=== PATIENT | female | born 1975 | race Two or more races ===

== ENCOUNTER 2016-11-13 17:17 | Emergency (ER) | payer SELFPAY ==
[~2016-11-13 17:17] MED LIST: PREN1TAB58 PO
[2016-11-13 17:31] VITALS: BP 118/70
[2016-11-13 18:02] LABS: BASO % 0 % (0-3); EOS % 3 % (0-3); HEMOGLOBIN 14.6 g/dL (12.0-15.5); LYMPH # 1.6 x10^3/uL (1.0-4.8); LYMPH % 24 % (24-48); MEAN CORPUSCULAR HEMOGLOBIN 30 pg (25-35); MEAN CORPUSCULAR HGB CONC 35 g/dL (31-37); MEAN CORPUSCULAR VOLUME 87 fL (79-100); MONO % 10 % (0-9); NEUT % 63 % (31-73); PLATELET COUNT 226 x10^3/uL (140-400); RED CELL DISTRIBUTION WIDTH 12.3 % (11.5-14.5); WHITE BLOOD COUNT 6.6 x10^3/uL (4.0-11.0)
[2016-11-13 18:12] LABS: CALCIUM 8.6 mg/dL (8.5-10.1); CREATININE 0.6 mg/dL (0.6-1.0); GFR 109.6; POTASSIUM 3.1 mmol/L (3.5-5.1)
[2016-11-13 18:18] LABS: ALBUMIN 3.2 g/dL (3.4-5.0); DIRECT BILIRUBIN 0.1 mg/dL (0.0-0.2); TOTAL BILIRUBIN 0.2 mg/dL (0.2-1.0); TOTAL PROTEIN 7.2 g/dL (6.4-8.2)
[2016-11-13] MEDS ORDERED: PREN1TAB58 PO (18:18)
--- NOTE | 2016-11-13 18:19 | PHYS DOC ---
Past Medical History Past Medical History: No Pertinent History Past Surgical History: No Surgical History Alcohol Use: None Drug Use: None Adult General Chief Complaint Chief Complaint: VAGINAL BLEEDING HPI HPI 41-year-old female presenting to the emergency department today with vaginal bleeding and abdominal pain. She is reportedly 11 weeks . Her pain is suprapubic nonradiating mild to moderate and without alleviating factors. She reports saturating approximately 2 pads over the last hour. She denies nausea vomiting chest pain or shortness of breath. Review of systems is negative for fevers chills. She denies dysuria or polyuria. All other review of systems is negative unless otherwise noted in history of present illness. Review of Systems Review of Systems SEE ABOVE. Current Medications Current Medications Current Medications Medications (Trade) Dose Ordered Sig/Micki Start Time Stop Time Status Last Admin Dose Admin Acetaminophen/ Hydrocodone Bitart (Lortab 5/325) 2 tab 1X ONCE 11/13/16 20:00 11/13/16 20:01 DC 11/13/16 19:55 2 TAB Allergies Allergies Allergies Coded Allergies Type Severity Reaction Last Updated Verified No Known Drug Allergies 10/31/15 No Physical Exam Physical Exam Constitutional: Well developed, well nourished, no acute distress, non-toxic appearance. HENT: Normocephalic, atraumatic, bilateral external ears normal, oropharynx moist, no oral exudates, nose normal. [] Eyes: PERRLA, EOMI, conjunctiva normal, no discharge. [] Neck: Normal range of motion, no tenderness, supple, no stridor. Cardiovascular:Heart rate regular rhythm, no murmur [] Lungs & Thorax: Bilateral breath sounds clear to auscultation Abdomen: Bowel sounds normal, soft, no tenderness, no masses, no pulsatile masses. Skin: Warm, dry, no erythema, no rash. [] Back: No tenderness, no CVA tenderness. Extremities: No tenderness, no cyanosis, no clubbing, ROM intact, no edema. [] Neurologic: Alert and oriented X 3, normal motor function, normal sensory function, no focal deficits noted. Psychologic: Affect normal, judgement normal, mood normal. [] Current Patient Data Vital Signs Vital Signs Date Time Temp Pulse Resp B/P Pulse Ox O2 Delivery O2 Flow Rate FiO2 11/13/16 19:55 12 11/13/16 17:31 97.9 94 118/70 99 Room Air 97.9 Lab Values Laboratory Tests Test 11/13/16 17:30 11/13/16 20:02 White Blood Count 6.6x10^3/uL (4.0-11.0) Red Blood Count 4.80x10^6/uL (3.50-5.40) Hemoglobin 14.6g/dL (12.0-15.5) Hematocrit 42.0% (36.0-47.0) Mean Corpuscular Volume 87fL (79-100) Mean Corpuscular Hemoglobin 30pg (25-35) Mean Corpuscular Hemoglobin Concent 35g/dL (31-37) Red Cell Distribution Width 12.3% (11.5-14.5) Platelet Count 226x10^3/uL (140-400) Neutrophils (%) (Auto) 63% (31-73) Lymphocytes (%) (Auto) 24% (24-48) Monocytes (%) (Auto) 10% (0-9) H Eosinophils (%) (Auto) 3% (0-3) Basophils (%) (Auto) 0% (0-3) Neutrophils # (Auto) 4.1x10^3uL (1.8-7.7) Lymphocytes # (Auto) 1.6x10^3/uL (1.0-4.8) Monocytes # (Auto) 0.6x10^3/uL (0.0-1.1) Eosinophils # (Auto) 0.2x10^3/uL (0.0-0.7) Basophils # (Auto) 0.0x10^3/uL (0.0-0.2) Maternal Serum HCG Beta Subunit 6053mIU/mL (0-6) H Sodium Level 137mmol/L (136-145) Potassium Level 3.1mmol/L (3.5-5.1) L Chloride Level 101mmol/L (98-107) Carbon Dioxide Level 26mmol/L (21-32) Anion Gap 10 (6-14) Blood Urea Nitrogen 5mg/dL (7-20) L Creatinine 0.6mg/dL (0.6-1.0) Estimated GFR (Cockcroft-Gault) 109.6 Glucose Level 105mg/dL (70-99) H Calcium Level 8.6mg/dL (8.5-10.1) Total Bilirubin 0.2mg/dL (0.2-1.0) Direct Bilirubin 0.1mg/dL (0.0-0.2) Aspartate Amino Transferase (AST) 107U/L (15-37) H Alanine Aminotransferase (ALT) 119U/L (14-59) H Alkaline Phosphatase 124U/L (46-116) H Total Protein 7.2g/dL (6.4-8.2) Albumin 3.2g/dL (3.4-5.0) L Lipase 187U/L (73-393) Urine Collection Type U cath Urine Color Yellow Urine Clarity Clear Urine pH 6.5 Urine Specific [place] 1.010 Urine Protein Negativemg/dL (NEG-TRACE) Urine Glucose (UA) Negativemg/dL (NEG) Urine Ketones (Stick) 40mg/dL (NEG) Urine Blood Negative (NEG) Urine Nitrite Negative (NEG) Urine Bilirubin Negative (NEG) Urine Urobilinogen Dipstick 0.2mg/dL (0.2 mg/dL) Urine Leukocyte Esterase Negative (NEG) Urine RBC 0/HPF (0-2) Urine WBC 0/HPF (0-4) Urine Squamous Epithelial Cells Few/LPF Urine Transitional Epithelial Cells Occ/LPF Urine Bacteria 0/HPF (0-FEW) Laboratory Tests 11/13/16 17:30 Laboratory Tests 11/13/16 17:30 EKG EKG [] Radiology/Procedures Radiology/Procedures [] Course & Med Decision Making Course & Med Decision Making Pertinent Labs and Imaging studies reviewed. (See chart for details) [] 41-year-old female presenting to the emergency department today with vaginal bleeding and . Vital signs afebrile normal heart rate. Pertinent physical exam showed a nontender soft abdomen. Blood work obtained. Patient is O + by electronic medical review. Ultrasound ordered. Intrauterine identified. CBC unremarkable. Ultrasound showed no evidence of intrauterine . No free fluid in the pelvis. Patient's potassium was low. She was discharged with oral potassium replacement. I discussed the case with Dr. Brannon who stated she would be able to follow the patient up in clinic over the next day or 2. 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 [id number] discharge instructions and return precautions given. Patient and comfortable with plan. Dragon Disclaimer Dragon Disclaimer This electronic medical record was generated, in whole or in part, using a voice recognition dictation system. Departure Departure Impression: Primary Impression: Vaginal bleeding in Disposition: 01 HOME, SELF-CARE Condition: STABLE Referrals: UNKNOWN PCP NAME (PCP) GURU LOERA Jr, MD Patient Instructions: Vaginal Bleeding During , [id number], Vaginal Bleeding During , First Trimester Additional Instructions: Thank you for allowing us to participate in your care today. Followup with dr. loera in 3-4 days. If you do not have a primary care provider you can ask for a list of our primary care providers. Return to the emergency department you have any new or concerning findings. This should be evaluated by the primary care physician and any necessary consulting services for continued management within a few days after discharge. Return to emergency room if you have any new or concerning symptoms including but not limited to fever, chills, nausea, vomiting, intractable pain, any new rashes, chest pain, shortness of air, uncontrolled bleeding, difficulty breathing, and/or vision loss. You may have been prescribed medication that can change in your level of thinking and ability to operate machinery. These medications include hydrocodone and Ativan. Also, Benadryl has been known to do this as well. Be sure to check with your pharmacist and ask if the medications you've prescribed can affect your level of consciousness. I recommend not operating heavy machinery or driving while on medication such as these. Scripts Morphine Sulfate 15 Mg Tablet1 Tab PO PRN Q6-8HRS PRN SEVERE PAIN #8 TAB Prov:EDILIA MOELLER MD 11/13/16 Potassium Chloride 10 Meq Tablet.er10 Meq PO DAILY #7 TAB Prov:EDILIA MOELLER MD 11/13/16 Vits W-Ca,Fe,Fa(<1MG) ( Vitamins)1 Each Tablet1 Tab PO DAILY # 15 TAB Ref 0 Prov:EDILIA MOELLER MD 11/13/16 Problem Qualifiers Primary Impression: Vaginal bleeding in Trimester: first trimester Qualified Code: O46.91 - Antepartum hemorrhage, unspecified, first trimester EDILIA MOELLER MD Nov 13, 2016 18:18
--- NOTE | 2016-11-13 19:31 | RAD ---
PROCEDURE Obstetric ultrasound less than 14 weeks HISTORY female with pelvic pain and vaginal bleeding TECHNIQUE Grayscale and duplex Doppler sonography with a transabdominal and transvaginal transducer COMPARISON No prior available at time of exam FINDINGS No quantitative HCG was submitted for the exam. Transabdominal imaging demonstrates uterus measuring 13.4 x 6.0 x 5.3 centimeters. There is globular marked enlargement of the cervix which has a short axis diameter of 7.6 centimeters. No intrauterine transabdominal. Ovaries not visualized transabdominal. Transvaginal imaging demonstrates anteverted uterus. No intrauterine evident. There is abnormal enlargement of the cervix with heterogeneous echogenicity, no hypervascularization of the cervix evident. Right ovary measures 2.0 x 2.4 x 1.1 centimeters. Left ovary measures 3.8 x 1.9 x 1.6 centimeters. Intact bilateral ovarian blood flow. IMPRESSION No intrauterine evident. There is abnormal enlargement and echogenicity of the cervix with no regions of abnormal hypervascularity present, this could represent a large volume of endocervical hematoma after recent spontaneous although enlargement of the cervix due to a mass cannot be excluded. Electronically signed by: Lyle Churchill MD (Nov 13, 2016 19:30:21)
[2016-11-13] MEDS ORDERED: POTA10TA10 PO (19:56)
[2016-11-13] MEDS ORDERED: HYDROCODONE/APAP 5/325MG TABLET. PO ONE (20:00)
[2016-11-13] MEDS ORDERED: MORP15TA PO (20:24)
[2016-11-13 20:59] LABS: BILIRUBIN,URINE NEGATIVE (NEG); GLUCOSE,URINE NEGATIVE (NEG); NITRITE,URINE NEGATIVE (NEG); PH,URINE 6.5; PROTEIN,URINE NEGATIVE (NEG-TRACE); UROBILINOGEN,URINE 0.2 mg/dL (0.2 mg/dL)
[2016-11-13 21:09] LABS: BACTERIA,URINE 0 /HPF (0-FEW); RBC,URINE 0 /HPF (0-2); SQUAMOUS EPITHELIAL CELL,UR FEW /LPF; WBC,URINE 0 /HPF (0-4)
== END 2016-11-13 21:53 | disposition home or self-care (01) ==
LOC: ER 17:17
DX: O46.91 Antepartum hemorrhage, unspecified, first trimester (principal); Z3A.11 11 weeks gestation of pregnancy
CPT/HCPCS: 36415; 76801; 80048; 80076; 81001; 83690; 84702; 85027; 99285-25

== ENCOUNTER 2018-11-14 03:53 | Inpatient (IN) | payer MEDICAID ==
[~2018-11-14] VITALS: Ht 165.1 cm; Wt 77.6 kg
[~2018-11-14 03:53] MED LIST changes: +MORP15TA PO; +POTA10TA12 PO
[2018-11-14] MEDS ORDERED: IV RINGERS,LACTATED 1000ML 1,000 ML IV SCH ×2 (04:00→04:30)
[2018-11-14] MEDS ORDERED: IV RINGERS,LACTATED 500ML 500 ML IV PRN (04:00)
[2018-11-14] MEDS ORDERED: 0.9 % SODIUM CHLORIDE 10 ML DISP.SYRIN. IV PRN ×3 (04:00→06:45)
[2018-11-14 04:15] VITALS: BP 118/76
[2018-11-14 04:27] LABS: BILIRUBIN,URINE NEGATIVE (NEG); CLARITY,URINE CLEAR; COLOR,URINE YELLOW; NITRITE,URINE NEGATIVE (NEG); PROTEIN,URINE NEGATIVE (NEG-TRACE); UROBILINOGEN,URINE 0.2 mg/dL (0.2 mg/dL)
[2018-11-14] MEDS ORDERED: OXYTOCIN 30 UNIT/500 ML PREMIX 500 ML IV PRN ×3 (04:30→06:45)
[2018-11-14] MEDS ORDERED: ONDANSETRON PF 4 MG/2 ML VIAL. IV PRN (04:30)
[2018-11-14] MEDS ORDERED: TERBUTALINE 1 MG/ML VIAL. SQ PRN (04:30)
[2018-11-14] MEDS ORDERED: LIDOCAINE 1% PF 30 ML VIAL. INJ PRN (04:30)
[2018-11-14] MEDS ORDERED: fentaNYL PF VIAL 100 MCG/2 ML VIAL IV PRN ×2 (04:30)
[2018-11-14] MEDS ORDERED: IBUPROFEN 400 MG TABLET. PO PRN (04:30)
[2018-11-14] MEDS ORDERED: ACETAMINOPHEN 325 MG TABLET. PO PRN ×2 (04:30→06:45)
[2018-11-14] MEDS ORDERED: CITRIC ACID/SODIUM CITRATE 30 ML SOLUTION. PO PRN (04:30)
[2018-11-14 04:34] LABS: BACTERIA,URINE 0 /HPF (0-FEW); RBC,URINE 0 /HPF (0-2); SQUAMOUS EPITHELIAL CELL,UR FEW /LPF; WBC,URINE 0 /HPF (0-4)
[2018-11-14 04:52] LABS: BASO % 0 % (0-3); EOS # 0.1 x10^3/uL (0.0-0.7); EOS % 2 % (0-3); HEMATOCRIT 37.8 % (36.0-47.0); HEMOGLOBIN 12.5 g/dL (12.0-15.5); LYMPH # 1.7 x10^3/uL (1.0-4.8); LYMPH % 19 % (24-48); MEAN CORPUSCULAR HEMOGLOBIN 30 pg (25-35); MEAN CORPUSCULAR HGB CONC 33 g/dL (31-37); MEAN CORPUSCULAR VOLUME 89 fL (79-100); MONO # 0.6 x10^3/uL (0.0-1.1); MONO % 7 % (0-9); NEUT # 6.5 x10^3uL (1.8-7.7); NEUT % 72 % (31-73); PLATELET COUNT 211 x10^3/uL (140-400); RED BLOOD COUNT 4.25 x10^6/uL (3.50-5.40); RED CELL DISTRIBUTION WIDTH 13.8 % (11.5-14.5)
[2018-11-14] MEDS ORDERED: PENICILLIN G K 5,000,000 UNIT in IV DEXTROSE 5% 100ML 100 ML IV ONE (05:00)
[2018-11-14] MEDS ORDERED: OXYTOCIN PREMIX 30 UNIT/500 ML BAG. IV ONE (06:00)
--- NOTE | 2018-11-14 06:44 | PDOC1 ---
OB - History Hx of Present Care: Good Care Ultrasounds: Normal mid trimester US Obstetrical Complications: None Medical Complications: None Past Family/Social History * Past Medical, Surgical, Family and Obstetric Histories reviewed from chart. Rubella: Immune RPR/VDRL: Negative GBS Status: Unknown HBsAG: Negative OB - Chief Complaint & HPI Date of Admission: Date of Admission: Nov 14, 2018 at 03:53 Chief Complaint/History : 6 Para: 2 EGA: 38 Reason for admission: active labor Admission Nurse Assessment Rev: Yes OB - Admission Exam Physical Exam HEENT: Normal Heart: Regular Rate Lungs: Clear Abdomen: Gravid, Non tender, Soft Extremities: Edema Reflexes: Normal Cervical Dilatation: 4cm Effacement: 100% Station: -2 Membranes: Intact Heart Rate: Normal Accelerations: Accelerations Present Decelerations: No decelerations Contractions on Admission: < 5 Minutes Apart Intensity: Firm Text A: 38 wks IUP GBS unknown Active labor P: Admit for labor management. GURU Lay Jr, MD Nov 14, 2018 06:44
[2018-11-14] MEDS ORDERED: ZOLPIDEM 5 MG TABLET. PO PRN (06:45)
[2018-11-14] MEDS ORDERED: diphenhydrAMINE HCL 25 MG CAPSULE PO PRN (06:45)
[2018-11-14] MEDS ORDERED: MAGNESIUM HYDROXIDE 2,400 MG/30 ML ORAL.SUSP. PO PRN (06:45)
[2018-11-14] MEDS ORDERED: oxyCODONE/APAP 5/325 1 TAB TABLET PO PRN (06:45)
[2018-11-14] MEDS ORDERED: DOCUSATE SODIUM 100 MG CAPSULE. PO PRN (06:45)
[2018-11-14] MEDS ORDERED: MAG HYDROX/ALUMINUM HYD/SIMETH 30 ML ORAL.SUSP PO PRN (06:45)
[2018-11-14] MEDS ORDERED: BENZOCAINE 20% TOPICAL AEROSOL SPRAY 57GM CAN. TP PRN (06:45)
[2018-11-14] MEDS ORDERED: HYDROCORTISONE 1% TOPICAL OINTMENT 30GM TUBE. TP PRN (06:45)
[2018-11-14] MEDS ORDERED: SIMETHICONE 80 MG TAB.CHEW PO PRN (06:45)
[2018-11-14] MEDS ORDERED: MMR per PROTOCOL. MC PRN (06:45)
[2018-11-14] MEDS ORDERED: PHENYLEPH/MINERAL OIL/PETROLAT RECTAL OINTMENT 28GM TUBE. RC PRN (06:45)
--- NOTE | 2018-11-14 06:45 | PDOC ---
VAGINAL DELIVERY DATE DATE: 11/14/18 TIME: 06:44 : 6 Para: 3 EGA: 38 VAGINAL DELIVERY: VTX VACCUM ASSISTED: No PLACENTA: Spontaneous 8/9 SEX: Male WEIGHT Weight [ 3515 gm] Nuchal Cord: No Amniotic Fluid: Clear PAIN: Natural EPISIOTOMY: No EXTENSION: Yes (2nd degree midline laceration) REPAIRED WITH 2-0 vicryl EBL 300 ml COMPLICATIONS none CONDITION pt. stable Signs of Intrauterine Infectio: None Shoulder Dystocia: No GURU LOERA Jr, MD Nov 14, 2018 06:45
[2018-11-14 07:32] VITALS: BP 116/74
[2018-11-14 08:48] VITALS: BP 89/53
[2018-11-14] MEDS ORDERED: PENICILLIN G K 2,500,000 UNIT in IV DEXTROSE 5% 50 ML IV SCH (09:00)
[2018-11-14 09:55] VITALS: BP 87/53
[2018-11-14 16:08] VITALS: BP 89/64
[2018-11-14] MEDS: IBUPROFEN 400 MG TABLET. PO PRN (16:43)
[2018-11-14 20:45] VITALS: BP 110/63
[2018-11-15 01:30] VITALS: BP 92/60
[2018-11-15 05:14] LABS: BASO % 0 % (0-3); EOS # 0.1 x10^3/uL (0.0-0.7); EOS % 2 % (0-3); HEMATOCRIT 36.3 % (36.0-47.0); LYMPH # 2.2 x10^3/uL (1.0-4.8); LYMPH % 25 % (24-48); MEAN CORPUSCULAR HEMOGLOBIN 30 pg (25-35); MEAN CORPUSCULAR HGB CONC 33 g/dL (31-37); MEAN CORPUSCULAR VOLUME 89 fL (79-100); MONO # 0.5 x10^3/uL (0.0-1.1); MONO % 6 % (0-9); NEUT # 5.7 x10^3uL (1.8-7.7); NEUT % 67 % (31-73); PLATELET COUNT 202 x10^3/uL (140-400); RED BLOOD COUNT 4.07 x10^6/uL (3.50-5.40); RED CELL DISTRIBUTION WIDTH 13.6 % (11.5-14.5); WHITE BLOOD COUNT 8.5 x10^3/uL (4.0-11.0)
[2018-11-15 06:35] VITALS: BP 93/70
[2018-11-15] MEDS ORDERED: FERROUS SULFATE 325 MG TABLET. PO SCH (08:00)
[2018-11-15 09:45] VITALS: BP 99/66
[2018-11-15] MEDS: IBUPROFEN 400 MG TABLET. PO PRN (10:06)
--- NOTE | 2018-11-15 11:51 | PDOC ---
OB Progress Note Date of Service 11/15/18 Time of Evaluation 1150 Notes Pt. feeling well. No complaints. Lab Laboratory Tests Test 11/14/18 04:15 11/14/18 04:30 11/15/18 03:30 Urine Collection Type Unknown Urine Color Yellow Urine Clarity Clear Urine pH 7.0 Urine Specific [place] 1.010 Urine Protein Negative mg/dL (NEG-TRACE) Urine Glucose (UA) Negative mg/dL (NEG) Urine Ketones (Stick) Negative mg/dL (NEG) Urine Blood Negative (NEG) Urine Nitrite Negative (NEG) Urine Bilirubin Negative (NEG) Urine Urobilinogen Dipstick 0.2 mg/dL (0.2 mg/dL) Urine Leukocyte Esterase Negative (NEG) Urine RBC 0 /HPF (0-2) Urine WBC 0 /HPF (0-4) Urine Squamous Epithelial Cells Few /LPF Urine Bacteria 0 /HPF (0-FEW) White Blood Count 9.0 x10^3/uL (4.0-11.0) 8.5 x10^3/uL (4.0-11.0) Red Blood Count 4.25 x10^6/uL (3.50-5.40) 4.07 x10^6/uL (3.50-5.40) Hemoglobin 12.5 g/dL (12.0-15.5) 12.0 g/dL (12.0-15.5) Hematocrit 37.8 % (36.0-47.0) 36.3 % (36.0-47.0) Mean Corpuscular Volume 89 fL (79-100) 89 fL (79-100) Mean Corpuscular Hemoglobin 30 pg (25-35) 30 pg (25-35) Mean Corpuscular Hemoglobin Concent 33 g/dL (31-37) 33 g/dL (31-37) Red Cell Distribution Width 13.8 % (11.5-14.5) 13.6 % (11.5-14.5) Platelet Count 211 x10^3/uL (140-400) 202 x10^3/uL (140-400) Neutrophils (%) (Auto) 72 % (31-73) 67 % (31-73) Lymphocytes (%) (Auto) 19 % (24-48) 25 % (24-48) Monocytes (%) (Auto) 7 % (0-9) 6 % (0-9) Eosinophils (%) (Auto) 2 % (0-3) 2 % (0-3) Basophils (%) (Auto) 0 % (0-3) 0 % (0-3) Neutrophils # (Auto) 6.5 x10^3uL (1.8-7.7) 5.7 x10^3uL (1.8-7.7) Lymphocytes # (Auto) 1.7 x10^3/uL (1.0-4.8) 2.2 x10^3/uL (1.0-4.8) Monocytes # (Auto) 0.6 x10^3/uL (0.0-1.1) 0.5 x10^3/uL (0.0-1.1) Eosinophils # (Auto) 0.1 x10^3/uL (0.0-0.7) 0.1 x10^3/uL (0.0-0.7) Basophils # (Auto) 0.0 x10^3/uL (0.0-0.2) 0.0 x10^3/uL (0.0-0.2) Treponema pallidum Antibody Nonreactive (Nonreactive) Laboratory Tests Test 11/15/18 03:30 White Blood Count 8.5 x10^3/uL (4.0-11.0) Red Blood Count 4.07 x10^6/uL (3.50-5.40) Hemoglobin 12.0 g/dL (12.0-15.5) Hematocrit 36.3 % (36.0-47.0) Mean Corpuscular Volume 89 fL (79-100) Mean Corpuscular Hemoglobin 30 pg (25-35) Mean Corpuscular Hemoglobin Concent 33 g/dL (31-37) Red Cell Distribution Width 13.6 % (11.5-14.5) Platelet Count 202 x10^3/uL (140-400) Neutrophils (%) (Auto) 67 % (31-73) Lymphocytes (%) (Auto) 25 % (24-48) Monocytes (%) (Auto) 6 % (0-9) Eosinophils (%) (Auto) 2 % (0-3) Basophils (%) (Auto) 0 % (0-3) Neutrophils # (Auto) 5.7 x10^3uL (1.8-7.7) Lymphocytes # (Auto) 2.2 x10^3/uL (1.0-4.8) Monocytes # (Auto) 0.5 x10^3/uL (0.0-1.1) Eosinophils # (Auto) 0.1 x10^3/uL (0.0-0.7) Basophils # (Auto) 0.0 x10^3/uL (0.0-0.2) Medications Current Medications Sodium Chloride (Normal Saline Flush) 3 ml QSHIFT PRN IV AFTER MEDS AND BLOOD DRAWS; Start 11/14/18 at 04:00; Stop 11/14/18 at 15:35; Status DC Ringer's Solution 500 ml @ 500 mls/hr PRN 1X PRN IV CALL MD IF GIVEN; Start at 04:00 Ringer's Solution 1,000 ml @ 125 mls/hr Q8H IV Last administered on 11/14/18at 04:35; Start 11/14/18 at 04:00; Stop 11/14/18 at 16:21; Status DC Sodium Chloride (Normal Saline Flush) 3 ml QSHIFT PRN IV AFTER MEDS AND BLOOD DRAWS; Start 11/14/18 at 04:30; Stop 11/14/18 at 16:20; Status DC Ringer's Solution 1,000 ml @ 125 mls/hr Q8H IV ; Start 11/14/18 at 04:30; Stop 11/14/18 at 16:21; Status DC Fentanyl Citrate (Fentanyl 2ml Vial) 50 mcg PRN Q30MIN PRN IV Mild to moderate pain; Start 11/14/18 at 04:30; Stop 11/14/18 at 16:21; Status DC Fentanyl Citrate (Fentanyl 2ml Vial) 100 mcg PRN Q30MIN PRN IV Severe pain; Start 11/14/18 at 04:30; Stop 11/14/18 at 16:21; Status DC Acetaminophen (Tylenol) 1,000 mg PRN Q6HRS PRN PO MILD PAIN / TEMP; Start at 04:30; Status Cancel Ondansetron HCl (Zofran) 4 mg PRN Q4HRS PRN IV NAUSEA/VOMITING; Start 11/14/18 at 04:30; Stop 11/14/18 at 16:21; Status DC Citric Acid/ Sodium Citrate (Bicitra) 30 ml 1X PRN PRN PO DYSPEPSIA; Start 11/14 at 04:30; Stop 11/15/18 at 04:29; Status DC Terbutaline Sulfate (Brethine) 0.25 mg 1X PRN PRN SQ SEE COMMENTS; Start at 04:30; Stop 11/15/18 at 04:29; Status DC Lidocaine HCl (Xylocaine 1% Pf 30ml Vial) 30 ml 1X PRN PRN INJ SEE COMMENTS; Start 11/14/18 at 04:30; Stop 11/14/18 at 16:21; Status DC Oxytocin/Sodium Chloride 500 ml @ 0 mls/hr CONT PRN IV SEE I/O RECORD; Start at 04:30; Stop 11/14/18 at 16:21; Status DC Oxytocin/Sodium Chloride 500 ml @ 0 mls/hr CONT PRN PRN IV Post delivery bleeding; Start 11/14/18 at 04:30 Ibuprofen (Motrin) 800 mg PRN Q6HRS PRN PO PAIN Last administered on 11/14/18at 08:38; Start 11/14/18 at 04:30; Stop 11/14/18 at 15:37; Status DC Penicillin G Potassium 0017028 unit/Dextrose 100 ml @ 100 mls/hr 1X ONCE IV Last administered on 11/14/18at 04:51; Start 11/14/18 at 05:00; Stop 11/14/18 at 05: 59; Status DC Penicillin G Potassium [id number] unit/Dextrose 50 ml @ 100 mls/hr Q4H IV ; Start 11/14/18 at 09:00; Stop 11/14/18 at 16:21; Status DC Sodium Chloride (Normal Saline Flush) 10 ml QSHIFT PRN IV AFTER MEDS AND BLOOD DRAWS; Start 11/14/18 at 06:45 Oxytocin/Sodium Chloride 500 ml @ 62.5 mls/hr CONT PRN IV SEE I/O RECORD; Start 11/14/18 at 06:45; Stop 11/14/18 at 14:44; Status DC Acetaminophen (Tylenol) 650 mg PRN Q6HRS PRN PO MILD PAIN / TEMP; Start at 06:45 Ibuprofen (Motrin) 800 mg PRN Q8HRS PRN PO INFLAMMATION/PAIN PREVENTION Last administered on 11/15/18at 10:06; Start 11/14/18 at 06:45 Docusate Sodium (Colace) 100 mg PRN BID PRN PO CONSTIPATION Last administered on 11/15/18at 10:05; Start 11/14/18 at 06:45 Magnesium Hydroxide (Milk Of Magnesia) 2,400 mg PRN DAILY PRN PO CONSTIPATION; Start 11/14/18 at 06:45 Al Hydroxide/Mg Hydroxide (Mylanta Plus Xs) 30 ml PRN Q4HRS PRN PO HEARTBURN / GAS; Start 11/14/18 at 06:45 Simethicone (Gas-X) 80 mg PRN AFTMEALHC PRN PO GAS / BLOATING; Start 11/14/18 at 06:45 Diphenhydramine HCl (Benadryl) 25 mg PRN Q6HRS PRN PO ITCHING; Start 11/14/18 at 06:45 Benzocaine (Americaine) 1 spray PRN QID PRN TP TOPICAL PAIN Last administered on 11/14/18at 08:38; Start 11/14/18 at 06:45 Phenyleph/Shark Oil/Min Oil/Petrol (Preparation H) 1 delbert PRN QID PRN RC RECTAL PAIN; Start 11/14/18 at 06:45 Hydrocortisone (Cortaid) 1 delbert PRN QID PRN TP PERINEAL PAIN; Start 11/14/18 at 06:45 Ferrous Sulfate (Feosol) 325 mg BIDWMEALS PO ; Start 11/15/18 at 08:00 Zolpidem Tartrate (Ambien) 5 mg PRN QHS PRN PO INSOMNIA, MAY REPEAT X1; Start 11/14/18 at 06:45 Info (Do NOT chart on this placeholder) 1 ea 1X PRN PRN MC SEE COMMENTS; Start 11/14/18 at 06:45 Info (Do NOT chart on this placeholder) 1 ea 1X PRN PRN MC SEE COMMENTS; Start 11/14/18 at 06:45; Stop 11/14/18 at 16:20; Status DC Oxycodone/ Acetaminophen (Percocet 5/325) 2 tab PRN Q4HRS PRN PO MODERATE PAIN , SEVERE PAIN; Start 11/14/18 at 06:45 Oxytocin/Sodium Chloride (Oxytocin Premix Infusion) 30 unit STK-MED ONCE IV ; Start 11/14/18 at 06:00; Stop 11/14/18 at 08:36; Status DC Active Scripts Active Morphine Sulfate 15 Mg Tablet 1 Tab PO PRN Q6-8HRS PRN Potassium Chloride 10 Meq Tablet.er 10 Meq PO DAILY Vitamins ( Vits W-Ca,Fe,Fa(<1MG)) 1 Each Tablet 1 Tab PO DAILY Reported Vitamins ( Vits W-Ca,Fe,Fa(<1MG)) 1 Each Tablet 1 Each PO Exam Abd: soft, non tender, fundus firm Assessment PPD#1 s/p Plan of Care: Continue current Tx, Mgmt GURU LOERA Jr, MD Nov 15, 2018 11:50
[2018-11-15 15:04] VITALS: BP 95/61
[2018-11-15 23:08] VITALS: BP 126/86
[2018-11-16] MEDS: IBUPROFEN 400 MG TABLET. PO PRN (00:15)
[2018-11-16 06:31] VITALS: BP 105/68
--- NOTE | 2018-11-16 08:41 | PDOC3 ---
OB DISCHARGE SUMMARY DATE OF ADMISSION: 11/14/18 DATE OF DISCHARGE: 11/16/18 REASON FOR ADMISSION: Onset of labor INTRAPARTUM PROCEDURES: Spontanous Vag Deliv DISCHARGE DIAGNOSIS: Term Delivered DISCHARGE INFORMATION: Activity (ad genesis), Diet (regular), Instructions (pelvic rest x 6 wks) HOSPITAL COURSE Term gestation delivered vaginally without complications. GURU LOERA Jr, MD Nov 16, 2018 08:41
[2018-11-16] MEDS ORDERED: IBUP-1027 PO (08:43)
--- NOTE | 2018-11-16 08:44 | DISCH ---
DISCHARGE INSTRUCTIONS Condition on Discharge Condition on Discharge: Stable Activity After Discharge Activity Instructions for Disc: Activity as tolerated Bathing Instructions: No Tub Bath until see Lifting Instructions after Dis: No heavy lifting Driving Instructions after Dis: Do not drive today Weight Bearing Status after Di: Full weight bearing Diet after Discharge Diet after Discharge: Regular Checks after Discharge Checks after discharge: Check your Temp as needed Contacting the DRSantiago after DC Call your doctor for: Concerns you may have Follow-Up Follow up with: Sebastián in 6 wks. GURU LOERA Jr, MD Nov 16, 2018 08:44
[2018-11-16 09:43] VITALS: BP 96/62
[2018-11-16 13:27] VITALS: BP 106/65
--- NOTE | 2018-11-16 13:38 | NUR ---
FACULTY CO-SIGN I have reviewed the documentation by nursing informatics clinical analyst:Isela Rodriguez
[2018-11-16 14:03] VITALS: BP 106/65
== END 2018-11-16 14:00 | disposition home or self-care (01) | DRG 807 ==
LOC: OBSVTOIN 03:53 → 3 SO LND 03:53
PROVIDERS: ADMIT Obstetrics & Gynecology; ATTEND Obstetrics & Gynecology
PROC: 10E0XZZ Delivery of Products of Conception, External Approach (ICD-10-PCS; principal; 2018-11-14)
PROC: 0KQM0ZZ Repair Perineum Muscle, Open Approach (ICD-10-PCS; 2018-11-14)
DX: O70.1 Second degree perineal laceration during delivery (principal); Z37.0 Single live birth; Z3A.38 38 weeks gestation of pregnancy
CPT/HCPCS: 36415; 81001; 85025; 86592; 86850; 86900; 86901; J2540; J2590; J7120